=== PATIENT | male | born 1940 | race Caucasian/White ===

== ENCOUNTER 2022-12-24 16:09 | Emergency (ER) | payer MEDICARE, BC ==
[2022-12-24] MEDS: Oxymetazoline 0.05% Nasal Spray 30 ML Bottle NAS ONE (16:23)
[2022-12-24] MEDS: Silver Nitrate Applicator Each TOP ONE (16:43)
[2022-12-24 16:48] VITALS: BP 140/67; PULSE 75
== END 2022-12-24 17:17 | disposition home or self-care (01) ==
LOC: CC.ED 16:09
DX: R04.0 Epistaxis (principal); Z88.0 Allergy status to penicillin; Z79.82 Long term (current) use of aspirin; Z79.01 Long term (current) use of anticoagulants
CPT/HCPCS: 30901; 99283

== ENCOUNTER 2023-12-11 14:15 | Emergency (ER) | payer MEDICARE, BC ==
[2023-12-11 14:39] LABS: BASOPHILS ABSOLUTE AUTO 0.06 10^3/uL (0.00-0.50); BASOPHILS PERCENT AUTO 0.7 % (0-1); EOSINOPHILS ABSOLUTE AUTO 0.44 10^3/uL (0.00-1.50); EOSINOPHILS PERCENT AUTO 4.9 % (0-6); HEMATOCRIT 35.3 % (42.0-52.0); HEMOGLOBIN 11.5 g/dL (14.0-18.0); IMMATURE GRAN ABSOLUTE AUTO 0.04 10^3/uL (0.00-0.49); IMMATURE GRAN PERCENT AUTO 0.4 % (0.0-4.9); LYMPHOCYTES ABSOLUTE AUTO 1.18 10^3/uL (0.60-5.00); LYMPHOCYTES PERCENT AUTO 13.2 % (24-44); MEAN CORPUSCULAR HEMOGLOBIN 28.2 pg (27.0-32.0); MEAN CORPUSCULAR HGB CONC 32.6 g/dL (32.0-36.0); MEAN CORPUSCULAR VOLUME 86.5 fL (83.0-97.0); MONOCYTES ABSOLUTE AUTO 0.86 10^3/uL (0.00-1.50); MONOCYTES PERCENT AUTO 9.6 % (0-10); NEUTROPHILS ABSOLUTE AUTO 6.34 x10^3/uL (1.80-8.00); NEUTROPHILS PERCENT AUTO 71.2 % (41-71); PLATELET COUNT,PLT 216 10^3/uL (150-400); RED BLOOD CELL COUNT 4.08 x10^6/uL (4.50-6.00); WHITE BLOOD CELL COUNT,WBC 8.9 10^3/uL (4.0-11.0)
[2023-12-11 14:40] VITALS: BP 122/59; PULSE 67
[2023-12-11 14:44] LABS: INR 2.3 (0.92-1.18); PROTHROMBIN TIME 23.2 SEC (9.3-11.3)
[2023-12-11 14:49] LABS: ALBUMIN 3.1 g/dL (3.4-5.0); BILIRUBIN TOTAL 0.4 mg/dL (0.0-1.0); CREATININE 1.3 mg/dL (0.7-1.3); EST CRCL DRUG DOSING (CG) 48.91 mL/min; POTASSIUM,K 4.4 mEq/L (3.5-5.0); PROTEIN TOTAL,TP 6.6 g/dL (6.4-8.2)
[2023-12-11] MEDS: ceFAZolin 2 GM Vial ONE (14:50)
[2023-12-11] MEDS: Diphtheria,Pertussis(Acell),Tetanus Vaccine 0.5 ML Syringe IM ONE (14:54)
[2023-12-11] MEDS: Sodium Chloride 0.9% 1,000 ML ONE (14:55)
[2023-12-11] MEDS: SODIUM CHLORIDE 0.9% IV ONE (14:55)
[2023-12-11] MEDS: Sodium Chloride 0.9% 1,000 ML IV ONE (14:55)
[2023-12-11] MEDS: PHYTONADIONE IV ONE (14:55)
[2023-12-11] MEDS: ceFAZolin 2 GM Vial IVPUSH ONE (14:55)
[2023-12-11] MEDS ORDERED: Naloxone 2 MG/2 ML Syringe IVPUSH PRN (14:57)
[2023-12-11] MEDS: HYDROmorphone 0.5 MG/0.5 ML Syringe IVPUSH ONE (14:59)
== END 2023-12-11 16:00 ==
LOC: CC.ED 14:15
DX: S68.110A Complete traumatic metacarpophalangeal amputation of right index finger, initial encounter (principal); S68.122A Partial traumatic metacarpophalangeal amputation of right middle finger, initial encounter; S68.124A Partial traumatic metacarpophalangeal amputation of right ring finger, initial encounter; S68.126A Partial traumatic metacarpophalangeal amputation of right little finger, initial encounter; I10 Essential (primary) hypertension; I48.91 Unspecified atrial fibrillation; Z88.0 Allergy status to penicillin; Z79.82 Long term (current) use of aspirin; Z79.01 Long term (current) use of anticoagulants; Z79.899 Other long term (current) drug therapy; Z23 Encounter for immunization; W31.2XXA Contact with powered woodworking and forming machines, initial encounter
CPT/HCPCS: 36415; 73130-RT; 80053; 82150; 83605; 85025; 85610; 90471; 90715; 96374; 96375; 99284-25; J0690; J1170; J3430; J3490; J7030

== ENCOUNTER 2024-09-26 10:19 | Inpatient (IN) | payer MEDICARE, BC ==
[2024-09-26] MEDS: Aspirin 81 MG Tab.Chew PO ONE (10:25)
[2024-09-26 10:28] LABS: BASOPHILS ABSOLUTE AUTO 0.06 10^3/uL (0.00-0.50); BASOPHILS PERCENT AUTO 0.7 % (0-1); EOSINOPHILS ABSOLUTE AUTO 0.51 10^3/uL (0.00-1.50); EOSINOPHILS PERCENT AUTO 5.6 % (0-6); HEMATOCRIT 35.4 % (42.0-52.0); HEMOGLOBIN 11.4 g/dL (14.0-18.0); IMMATURE GRAN ABSOLUTE AUTO 0.04 10^3/uL (0.00-0.49); IMMATURE GRAN PERCENT AUTO 0.4 % (0.0-4.9); LYMPHOCYTES PERCENT AUTO 12.1 % (24-44); MEAN CORPUSCULAR HEMOGLOBIN 27.9 pg (27.0-32.0); MEAN CORPUSCULAR HGB CONC 32.2 g/dL (32.0-36.0); MEAN CORPUSCULAR VOLUME 86.8 fL (83.0-97.0); MONOCYTES ABSOLUTE AUTO 0.84 10^3/uL (0.00-1.50); MONOCYTES PERCENT AUTO 9.2 % (0-10); NEUTROPHILS ABSOLUTE AUTO 6.56 x10^3/uL (1.80-8.00); PLATELET COUNT,PLT 178 10^3/uL (150-400); RED BLOOD CELL COUNT 4.08 x10^6/uL (4.50-6.00); WHITE BLOOD CELL COUNT,WBC 9.1 10^3/uL (4.0-11.0)
[2024-09-26 10:45] LABS: ALANINE AMINOTRANSFERASE,ALT 28 U/L (12-78); ALBUMIN 3.2 g/dL (3.4-5.0); ALKALINE PHOSPHATASE 81 U/L (46-116); ASPARTATE AMNIOTRANSFERASE,AST 23 U/L (15-37); BILIRUBIN TOTAL 0.3 mg/dL (0.0-1.0); BLOOD UREA NITROGEN,BUN 43 mg/dL (7-18); CALCIUM 8.7 mg/dL (8.4-10.1); CARBON DIOXIDE,CO2 30 mmol/L (21-32); CHLORIDE,CL 100 mEq/L (98-106); CREATININE 1.9 mg/dL (0.7-1.3); GLUCOSE RANDOM 106 mg/dL (75-99); MAGNESIUM 2.1 mg/dL (1.8-2.4); POTASSIUM,K 4.8 mEq/L (3.5-5.0); SODIUM,NA 138 mEq/L (136-145)
[2024-09-26 10:46] LABS: ESTIMATED GFR 35 mL/min (>=60)
[2024-09-26 10:48] LABS: INR 3.66 (0.92-1.18); PROTHROMBIN TIME 36.1 SEC (9.3-11.3); PTT,PARTIAL THROMBOPLSTIN TIME 39.4 SEC (20.0-30.0)
[2024-09-26] MEDS ORDERED: Acetaminophen 325 MG Tab PO PRN (13:36)
[2024-09-26] MEDS ORDERED: Docusate Sodium 100 MG Cap PO PRN (13:36)
[2024-09-26] MEDS ORDERED: Ondansetron 4 MG/2 ML SDV IV PRN (13:36)
[2024-09-26] MEDS ORDERED: Atropine 0.1 MG/ML 10 ML Syringe IVPUSH PRN (13:36)
[2024-09-26] MEDS ORDERED: Polyethylene Glycol 3350 Powder 17 GM Packet PO PRN (13:36)
[2024-09-26] MEDS: traZODone 50 MG Tab PO SCH (19:25)
[2024-09-26] MEDS: rOPINIRole 0.25 MG Tab PO SCH (19:25)
[2024-09-26] MEDS: traMADol 50 MG Tab PO PRN (19:25)
[2024-09-26] MEDS: Gabapentin 100 MG Cap PO SCH (19:25)
[2024-09-27 07:20] LABS: CALCIUM 8.5 mg/dL (8.4-10.1); CREATININE 1.4 mg/dL (0.7-1.3); EST CRCL DRUG DOSING (CG) 47.3 mL/min; MAGNESIUM 2.1 mg/dL (1.8-2.4); POTASSIUM,K 4.5 mEq/L (3.5-5.0)
[2024-09-27] MEDS: Aspirin 81 MG Tab.Chew PO SCH (07:35)
[2024-09-27] MEDS: Cholecalciferol (Vitamin D3) 25 MCG Tab PO SCH (07:35)
[2024-09-27] MEDS: Pantoprazole 40 MG Tab.CR PO SCH (07:35)
[2024-09-27] MEDS: Calcium Carbonate 500 MG Tab.Chew PO SCH (07:35)
[2024-09-27] MEDS: Sertraline 25 MG Tab PO SCH (07:35)
[2024-09-27 07:37] LABS: BASOPHILS ABSOLUTE AUTO 0.06 10^3/uL (0.00-0.50); BASOPHILS PERCENT AUTO 0.6 % (0-1); EOSINOPHILS ABSOLUTE AUTO 0.51 10^3/uL (0.00-1.50); EOSINOPHILS PERCENT AUTO 5.2 % (0-6); HEMATOCRIT 35.5 % (42.0-52.0); HEMOGLOBIN 11.5 g/dL (14.0-18.0); IMMATURE GRAN ABSOLUTE AUTO 0.03 10^3/uL (0.00-0.49); IMMATURE GRAN PERCENT AUTO 0.3 % (0.0-4.9); LYMPHOCYTES ABSOLUTE AUTO 0.99 10^3/uL (0.60-5.00); LYMPHOCYTES PERCENT AUTO 10.2 % (24-44); MEAN CORPUSCULAR HEMOGLOBIN 27.8 pg (27.0-32.0); MEAN CORPUSCULAR HGB CONC 32.4 g/dL (32.0-36.0); MEAN CORPUSCULAR VOLUME 85.7 fL (83.0-97.0); MONOCYTES ABSOLUTE AUTO 1.06 10^3/uL (0.00-1.50); MONOCYTES PERCENT AUTO 10.9 % (0-10); NEUTROPHILS ABSOLUTE AUTO 7.07 x10^3/uL (1.80-8.00); NEUTROPHILS PERCENT AUTO 72.8 % (41-71); PLATELET COUNT,PLT 179 10^3/uL (150-400); RED BLOOD CELL COUNT 4.14 x10^6/uL (4.50-6.00); WHITE BLOOD CELL COUNT,WBC 9.7 10^3/uL (4.0-11.0)
[2024-09-27 08:07] LABS: INR 3.07 (0.92-1.18); PROTHROMBIN TIME 30.6 SEC (9.3-11.3)
[2024-09-27] MEDS: Furosemide 20 MG Tab PO SCH (09:55)
[2024-09-28 10:00] LABS: BASOPHILS ABSOLUTE AUTO 0.04 10^3/uL (0.00-0.50); BASOPHILS PERCENT AUTO 0.3 % (0-1); EOSINOPHILS ABSOLUTE AUTO 0.28 10^3/uL (0.00-1.50); EOSINOPHILS PERCENT AUTO 2.3 % (0-6); HEMATOCRIT 38.9 % (42.0-52.0); HEMOGLOBIN 12.6 g/dL (14.0-18.0); IMMATURE GRAN ABSOLUTE AUTO 0.04 10^3/uL (0.00-0.49); IMMATURE GRAN PERCENT AUTO 0.3 % (0.0-4.9); LYMPHOCYTES ABSOLUTE AUTO 0.85 10^3/uL (0.60-5.00); LYMPHOCYTES PERCENT AUTO 7.1 % (24-44); MEAN CORPUSCULAR HEMOGLOBIN 27.6 pg (27.0-32.0); MEAN CORPUSCULAR HGB CONC 32.4 g/dL (32.0-36.0); MEAN CORPUSCULAR VOLUME 85.1 fL (83.0-97.0); MONOCYTES ABSOLUTE AUTO 1.28 10^3/uL (0.00-1.50); MONOCYTES PERCENT AUTO 10.7 % (0-10); NEUTROPHILS ABSOLUTE AUTO 9.48 x10^3/uL (1.80-8.00); NEUTROPHILS PERCENT AUTO 79.3 % (41-71); PLATELET COUNT,PLT 180 10^3/uL (150-400); RED BLOOD CELL COUNT 4.57 x10^6/uL (4.50-6.00)
[2024-09-28 10:08] LABS: CALCIUM 9.1 mg/dL (8.4-10.1); CREATININE 1.4 mg/dL (0.7-1.3); EST CRCL DRUG DOSING (CG) 47.3 mL/min; POTASSIUM,K 3.9 mEq/L (3.5-5.0)
[2024-09-28 12:42] LABS: INR 1.76 (0.92-1.18)
[2024-09-28] MEDS: Warfarin 2 MG Tab PO ONE (14:32)
[2024-09-28] MEDS: Warfarin** 1 MG TABLET PO ONE (14:33)
[2024-09-28 16:26] VITALS: BP 130/54; PULSE 51
[2024-09-29] MEDS ORDERED: Warfarin 2.5 MG Tab PO SCH (12:00)
== END 2024-09-28 18:08 | DRG 684 ==
LOC: CC.ED 10:19 → CC.MS 11:30 → UNDOADMIN 11:30 → CC.MS 12:17
PROVIDERS: ADMIT Nurse Practitioner; ATTEND Nurse Practitioner
DX: N17.9 Acute kidney failure, unspecified (principal); I12.9 Hypertensive chronic kidney disease with stage 1 through stage 4 chronic kidney disease, or unspecified chronic kidney disease; Z66 Do not resuscitate; I48.91 Unspecified atrial fibrillation; I10 Essential (primary) hypertension; F32.A Depression, unspecified; N18.9 Chronic kidney disease, unspecified; I95.89 Other hypotension; R55 Syncope and collapse; R00.1 Bradycardia, unspecified; Z88.1 Allergy status to other antibiotic agents; Z88.0 Allergy status to penicillin; Z88.8 Allergy status to other drugs, medicaments and biological substances; Z79.82 Long term (current) use of aspirin; Z79.01 Long term (current) use of anticoagulants; Z79.1 Long term (current) use of non-steroidal anti-inflammatories (NSAID); Z79.899 Other long term (current) drug therapy
CPT/HCPCS: 36415; 71045; 80048; 80053; 83735; 83880; 84484; 85025; 85610; 85730; 87428-QW; 93005; 99285; A9270-GY

== ENCOUNTER 2024-10-15 17:15 | Emergency (ER) | payer MEDICARE, BC ==
[2024-10-15 17:40] VITALS: BP 100/59; PULSE 67
== END 2024-10-15 18:20 | disposition home or self-care (01) ==
LOC: CC.ED 17:15
DX: I95.9 Hypotension, unspecified (principal); I48.91 Unspecified atrial fibrillation; I10 Essential (primary) hypertension; Z88.0 Allergy status to penicillin; Z88.1 Allergy status to other antibiotic agents; Z88.8 Allergy status to other drugs, medicaments and biological substances; Z79.82 Long term (current) use of aspirin; Z79.01 Long term (current) use of anticoagulants; Z79.899 Other long term (current) drug therapy
CPT/HCPCS: 99285